=== PATIENT | male | born 1990 | race African-American/Black ===

== ENCOUNTER 2019-04-26 13:32 | Emergency (ER) | payer BC, OTHER ==
[~2019-04-26] VITALS: Ht 190.5 cm; Wt 84.0 kg
[2019-04-26 13:40] VITALS: BP 137/74
[2019-04-26] MEDS ORDERED: LIDOCAINE-MPF 1%, 2ML ONE (13:52)
[2019-04-26] MEDS ORDERED: LIDOCAINE 1%, 2ML INFIL ONE (14:00)
--- NOTE | 2019-04-26 14:26 | NUR ---
Recommended patient get a tdap update, states he thinks he may have had one recently and refuses.
== END 2019-04-26 14:27 | disposition home or self-care (01) ==
LOC: ED 13:45
DX: Z48.01 Encounter for change or removal of surgical wound dressing (principal)
CPT/HCPCS: 99282; 99283

== ENCOUNTER 2019-05-06 10:03 | Emergency (ER) | payer BC, OTHER ==
[~2019-05-06] VITALS: Ht 190.5 cm; Wt 88.2 kg
[2019-05-06 10:16] VITALS: BP 144/93
[2019-05-06] MEDS ORDERED: LIDOCAINE-MPF 1%, 5ML INFIL ONE (10:30)
[2019-05-06] MEDS ORDERED: LIDOCAINE-MPF 1%, 2ML ONE (10:33)
--- NOTE | 2019-05-06 10:46 | NUR ---
first contact with pt. pt here for Recheck abscess R buttock. I&D on 04/23, taking abx, feels may need to be I&D again. pt's aox4. resps even and unlabored.
--- NOTE | 2019-05-06 11:03 | NUR ---
PT GIVEN DC INSTRUCTIONS AND SCRIPTS. PT EDUCATED REGARDING DC MEDICATIONS. PT'S AOX4. RESPS EVEN AND UNLABORED. NO ACUTE DISTRESS AT DC. PT AMB TO DC WITH STEADY GAIT.
== END 2019-05-06 11:04 | disposition home or self-care (01) ==
LOC: ED 10:55
DX: L05.01 Pilonidal cyst with abscess (principal); F17.200 Nicotine dependence, unspecified, uncomplicated; Z88.1 Allergy status to other antibiotic agents
CPT/HCPCS: 10080; 99284

== ENCOUNTER 2020-09-27 12:54 | Emergency (ER) | payer SELFPAY ==
[~2020-09-27] VITALS: Ht 190.5 cm; Wt 73.0 kg
[2020-09-27] MEDS ORDERED: LIDOCAINE-MPF 1%, 5ML INFIL ONE (13:30)
[2020-09-27] MEDS ORDERED: LIDOCAINE-MPF 1%, 2ML ONE (16:51)
[2020-09-27 18:54] VITALS: BP 135/89
== END 2020-09-27 18:56 | disposition home or self-care (01) ==
LOC: ED 13:00
DX: L02.31 Cutaneous abscess of buttock (principal)
CPT/HCPCS: 10060; 99283

== ENCOUNTER 2021-02-09 18:35 | Emergency (ER) | payer SELFPAY ==
[~2021-02-09] VITALS: Ht 190.5 cm; Wt 83.4 kg
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
[2021-02-09 20:38] VITALS: BP 135/112
== END 2021-02-09 20:41 | disposition home or self-care (01) ==
LOC: ED 20:25
DX: S56.427A Laceration of extensor muscle, fascia and tendon of right little finger at forearm level, initial encounter (principal); M79.89 Other specified soft tissue disorders; X58.XXXA Exposure to other specified factors, initial encounter; Y93.89 Activity, other specified; Y92.89 Other specified places as the place of occurrence of the external cause; Y99.8 Other external cause status
CPT/HCPCS: 29125; 29515; 99283